=== PATIENT | female | born 1930 | race Hispanic/Latino ===

== ENCOUNTER 2016-12-20 19:57 | Emergency (ER) | payer MEDICARE ==
[2016-12-20 20:28] VITALS: BP 200/85
[2016-12-20 21:09] LABS: Basophils % (Auto) 0.4 % (0.0-1.8); Hematocrit 35.6 % (30.3-42.9); Hemoglobin 12.1 gm/dl (10.1-14.3); Mean Corpuscular HGB Conc 34 % (30-34); Mean Corpuscular Hemoglobin 31 pg (28-32); Mean Corpuscular Volume 91 fl (79-97); Platelet Count 191 K/mm3 (140-440); Red Blood Count 3.92 M/mm3 (3.65-5.03); Red Cell Distribution Width 13.2 % (13.2-15.2); White Blood Count 4.4 K/mm3 (4.5-11.0)
[2016-12-20 21:20] LABS: Anion Gap 18 mmol/L; BUN/Creatinine Ratio 36.66; Blood Urea Nitrogen 22 mg/dL (7-17); Carbon Dioxide 26 mmol/L (22-30); Chloride 93.7 mmol/L (98-107); Glucose 112 mg/dL (65-100); Potassium 4.9 mmol/L (3.6-5.0); Sodium 133 mmol/L (137-145)
--- NOTE | 2016-12-21 09:26 | ED Elopement Review ---
ED Pt Elopement review - Results review Lab results: Laboratory Tests 12/20/16 12/20/16 20:43 20:43 WBC 4.4 L RBC 3.92 Hgb 12.1 Hct 35.6 MCV 91 MCH 31 MCHC 34 RDW 13.2 Plt Count 191 Lymph % (Auto) 33.3 [place] % (Auto) 9.4 H Eos % (Auto) 1.0 Baso % (Auto) 0.4 Lymph # 1.5 [place] # 0.4 Eos # 0.0 Baso # 0.0 Seg Neutrophils % 55.9 Seg Neutrophils # 2.5 Sodium 133 L Potassium 4.9 Chloride 93.7 L Carbon Dioxide 26 Anion Gap 18 BUN 22 H Creatinine 0.6 L Estimated GFR > 60 BUN/Creatinine Ratio 36.66 Glucose 112 H Calcium 9.0 Troponin T < 0.010 - Call Back decision Pt Call Back Decision: No action required
== END 2016-12-20 21:45 | disposition left against medical advice (07) ==
LOC: ED 19:57
DX: R51 Headache (principal); R07.89 Other chest pain; Z53.21 Procedure and treatment not carried out due to patient leaving prior to being seen by health care provider
CPT/HCPCS: 36415; 80048; 84484; 85025; 93005; 93010